=== PATIENT | male | born 1985 | race Two or more races ===

== ENCOUNTER 2024-02-17 06:00 | Day surgery (SDC) | payer OTHER ==
[2024-02-09 10:04] LABS: HEMATOCRIT 46.6 % (39.0-48.0); HEMOGLOBIN 15.7 g/dL (13-16.00); MEAN CELL VOLUME 89.3 fL (80.0-100.00); MEAN CORPUSCULAR HGB CONC 33.6 g/dl (32.0-36.0); PLATELET COUNT 227 K/uL (150-450); RED BLOOD COUNT 5.21 M/uL (4.00-6.00); RED CELL DISTRIBUTION WIDTH 13.2 % (11.5-14.5)
[2024-02-09 10:24] LABS: INR 1.05; PARTIAL THROMBOPLASTIN TIME 28.4 SECONDS (22.0-34.0); PROTHROMBIN TIME 11.4 SECONDS (9.0-11.5)
[2024-02-09 10:29] LABS: PH,URINE 5.5 (5.0-8.0); URINE APPEARANCE Clear; URINE BILIRRUBIN Negative (NEGATIVE); URINE BLOOD Trace; URINE COLOR Dark Yellow; URINE GLUCOSE Negative (NEGATIVE); URINE KETONE Trace (NEGATIVE); URINE LEUKOCYTE Negative; URINE NITRATE Negative; URINE PROTEIN Trace (NEGATIVE)
[2024-02-09 10:34] LABS: URINE BACTERIA 15.9 uL (0.0-1933); URINE CAST 1.76 uL (0.0-1.40); URINE EPITHELIAL CELLS 1.5 uL (0.0-38.8); URINE RBC 25.1 uL (0.0-20.8); URINE WBC 4.5 uL (0.0-23.2)
[2024-02-09 10:50] LABS: ALBUMIN 4.4 gm/dL (3.4-5.0); BILIRUBIN TOTAL 1.93 mg/dL (0.3-1.2); CALCIUM 9.3 mg/dL (8.5-10.1); CREATININE SERUM 0.92 mg/dL (0.70-1.30); GFR 93.09; GLOBULINA 3.1 G/DL (2.4-3.5); POTASSIUM 4.47 mEq/L (3.5-5.1); TOTAL PROTEIN 7.5 gm/dL (6.4-8.2)
[2024-02-17] MEDS ORDERED: CEFAZOLIN SODIUM 1,000 MG VIAL IV ONE (13:30)
[2024-02-17] MEDS ORDERED: BUPIVACAINE HCL 30 ML VIAL IJ ONE (14:15)
[2024-02-17] MEDS ORDERED: MORPHINE SULFATE 4 MG/ML VIAL IV ONE ×2 (15:05→15:45)
[2024-02-17] MEDS ORDERED: SUGAMMADEX SODIUM 200 MG/2 ML VIAL IV ONE (15:15)
== END 2024-02-17 16:35 | disposition home or self-care (01) ==
LOC: CIR.AMB 06:00
PROVIDERS: ATTEND Orthopaedic Surgery Hand Surgery
DX: G56.22 Lesion of ulnar nerve, left upper limb (principal); M77.02 Medial epicondylitis, left elbow

== ENCOUNTER 2024-04-20 16:46 | Emergency (ER) | payer OTHER ==
[~2024-04-20] VITALS: Ht 180.3 cm; Wt 90.7 kg
[2024-04-20] MEDS ORDERED: KETOROLAC TROMETHAMINE 30 MG VIAL IM STA (18:27)
[2024-04-20] MEDS ORDERED: DEXAMETHASONE SODIUM PHOSPHATE 4 MG/ML VIAL IM STA (18:28)
[2024-04-20] MEDS ORDERED: DEXAMETHASONE SODIUM PHOSPHATE 4 MG/ML VIAL ONE (18:37)
[2024-04-20] MEDS ORDERED: KETOROLAC TROMETHAMINE 30 MG VIAL ONE (18:37)
== END 2024-04-20 20:57 | disposition home or self-care (01) ==
LOC: ER 16:48
DX: S93.691A Other sprain of right foot, initial encounter (principal); Y93.39 Activity, other involving climbing, rappelling and jumping off; Y93.89 Activity, other specified; Y92.098 Other place in other non-institutional residence as the place of occurrence of the external cause; Y99.8 Other external cause status